=== PATIENT | female | born 1975 | race African-American/Black ===

== ENCOUNTER 2018-06-12 11:07 | Emergency (ER) | payer OTHER ==
[~2018-06-12] VITALS: Ht 167.6 cm; Wt 117.9 kg
[~2018-06-12 11:07] MED LIST: FLAG500 PO
--- NOTE | 2018-06-12 12:13 | RADIOLOGY REPORT ---
EXAMINATION: XR CHEST CLINICAL INFORMATION: Cough, dyspnea on exertion, upper back pain, chest pain. Presumptive diagnosis: Pneumonia versus CHF. COMPARISON: None TECHNIQUE: PA and lateral views of the chest are obtained. FINDINGS: The heart is normal in size. There is no congestion or focal consolidation. There is mild perihilar peribronchial thickening. The bony thorax is unremarkable. IMPRESSION: No acute cardiopulmonary process.
[2018-06-12 12:47] LABS: ABSOLUTE BASOPHIL COUNT 0 /CUMM (0.0-0.2); ABSOLUTE EOSINOPHIL COUNT 0.2 /CUMM (0.0-0.7); ABSOLUTE GRANULOCYTE CT 4.8 /CUMM (1.4-6.5); ABSOLUTE LYMPH COUNT 1.4 /CUMM (1.2-3.4); ABSOLUTE MONOCYTE COUNT 0.5 /CUMM (0.10-0.60); BASOPHIL % 0.6 % (0.0-2.0); EOSINOPHIL % 3.5 % (0-5); GRANULOCYTE % 68.9 % (42.2-75.2); MEAN CORPUSCULAR HGB 26.8 PG (27.0-31.0); MEAN CORPUSCULAR VOLUME 81.3 FL (81.0-99.0); MEAN PLATELET VOLUME 8.6 FL (7.4-10.4); PLATELET COUNT 270 /CUMM (130-400); RBC DISTRIBUTION WIDTH 15.7 % (11.5-14.5); RED BLOOD CELL CT 5.03 /CUMM (4.20-5.40)
[2018-06-12] MEDS ORDERED: PROAIR HFA8.5 GM INH (13:25)
[2018-06-12] MEDS ORDERED: PREDNISONE20 M1 PO (13:25)
--- NOTE | 2018-06-12 13:26 | ED DYSPNEA/ASTHMA COMPLAINT ---
History of Present Illness General Chief Complaint: Dyspnea (COPD, CHF, Other) Stated Complaint: SOB, CHEST PAIN Source: patient, old records Exam Limitations: no limitations Vital Signs & Intake/Output Vital Signs & Intake/Output Vital Signs Date Time Temp Pulse Resp B/P B/P Pulse O2 O2 Flow FiO2 Mean Ox Delivery Rate 06/12 1739 99 22 177/87 94 Room Air 06/12 1737 Room Air 06/12 1603 98.4 109 21 175/93 96 Room Air 06/12 1514 97 06/12 1505 107 22 179/101 96 Room Air 06/12 1331 96 06/12 1113 98.6 97 18 141/83 98 Room Air Allergies Coded Allergies: NO KNOWN ALLERGIES (06/12/18) Triage Note: 42 YO FEMALE TO TRIAGE FOR EVAL OF SOB. STATES HAS HAD A DRY COUGH SINE THE BEGINNING OF THE WEEK. REPORTS TODAY STARTED WITH SOB ON EXERTION. C/O PAIN IN UPPER BACK AND CHEST. Triage Nurses Notes Reviewed? yes Onset: Gradual Duration: day(s): (4) Severity: mild Activities at Onset: none Modifying Factors: Improves With: rest. Worsens With: movement. Associated Symptoms: anxiety, cough LMP (ages 10-50): post menopausal (tubes tied) : No Patient currently breastfeeds: No HPI: Mrs Sexton is a 42F with no past medical history that presents with a 4-day history of cough, as well as acute onset of dyspnea on exertion and chest tightness last night. States that she has had a dry cough all week with audible wheezing, and it has worsened throughout the week. States that cough medicine has helped decrease the cough, but she still feels some chest tightness. She says that this feels like an anxiety attack with superimposed cough, and she has an itchy throat. She also complains of some upper back pain secondary to cough. Currently, she rates the chest tightness as a 5 out of 10, was initially 2 out of 10. She works in the school, and has multiple sick contacts. She states that she is short of breath after climbing 1 flight of steps or walking less than one city block, whereas previously she was able to walk at least 10 city blocks or 4 flights of steps before becoming short of breath. Had gone for PFTs back in April 2017 for similar complaints, with no findings. (Estefania FISHER,[place]) Reconcile Medications Albuterol Sulfate (Proair Hfa) 90 MCG HFA.AER.AD 2 PUF INH Q4-6 PRN PRN wheezing Prednisone 20 MG TABLET 1 TAB PO DAILY wheezing (Ramakrishna Harp MD) Past History Travel History Traveled to [place] past 21 day No Medical History Any Pertinent Medical History? none Neurological: NONE EENT: NONE Cardiovascular: NONE Respiratory: NONE Gastrointestinal: NONE Hepatic: NONE Renal: NONE Musculoskeletal: NONE Psychiatric: anxiety, depression, insomnia Endocrine: NONE Blood Disorders: NONE Cancer(s): NONE MYSTERY SHOPPER/Reproductive: TUBAL LIGATION Influenza Vaccine: 07/17/12 Surgical History Surgical History: DENIES Psychosocial History What is your primary language Gabonese Tobacco Use: Never used Family History Hx Contributory? No (Chema Mac MD) Review of Systems Review of Systems Constitutional: Reports: see HPI, chills. Denies: fever, weakness. Respiratory: Reports: cough, short of breath, wheezing. Cardiovascular: Denies: chest pain, edema. GI: Reports: no symptoms. Genitourinary: Reports: no symptoms. Musculoskeletal: Reports: no symptoms. Skin: Reports: no symptoms. Neurological/Psychological: Reports: anxiety. (Chema Mac MD) Physical Exam Physical Exam General Appearance: well developed/nourished, no apparent distress, alert, awake Head: atraumatic Ears, Nose, Throat: normal pharynx, normal ENT inspection Neck: normal inspection Respiratory: diffuse inspiratory and expiratory wheezes Cardiovascular: sinus arrythmia Peripheral Pulses: 2+ radial (R), 2+ radial (L), 2+ dorsalis pedis (R), 2+ dorsalis pedis (L) Gastrointestinal: soft, non-tender Extremities: normal inspection, no edema Core Measures ACS in differential dx? No CVA/TIA Diagnosis No Sepsis Present: No Sepsis Focused Exam Completed? No (Chema Mac MD) Progress Differential Diagnosis: asthma, bronchitis, costochondritis, pneumonia Plan of Care: Orders Procedure Date/time Status TRC EVALUATION (GEN) 06/12 1247 Active TROPONIN LEVEL 06/12 1154 Complete COMPREHENSIVE METABOLIC PANEL 06/12 1154 Complete CBC WITHOUT DIFFERENTIAL 06/12 1154 Complete EKG 06/12 1107 Active Laboratory Tests 06/12/18 1240: Anion Gap 10, Estimated GFR > 60, BUN/Creatinine Ratio 17.1, Glucose 102 H, Calcium 9.2, Total Bilirubin 0.6, AST 26, ALT 40, Alkaline Phosphatase 73, Troponin I < 0.01, Total Protein 7.3, Albumin 4.3, Globulin 3.0, Albumin/ Globulin Ratio 1.4, CBC w Diff NO MAN DIFF REQ, RBC 5.03, MCV 81.3, MCH 26.8 L, MCHC 33.0, RDW 15.7 H, MPV 8.6, Gran % 68.9, Lymphocytes % 20.2 L, Monocytes % 6.8, Eosinophils % 3.5, Basophils % 0.6, Absolute Granulocytes 4.8, Absolute Lymphocytes 1.4, Absolute Monocytes 0.5, Absolute Eosinophils 0.2, Absolute Basophils 0 Diffuse inspiratory and expiratory wheezes on lung exam. Ordered nebulizer, will reassess patients lung exam post nebulizer treatment. 1430: Post nebulizer treatment, patients lungs continue to wheeze. Will give 50mg prednisone and another albuterol treatment. Repeat lung exam: lungs clearer, although still some wheezes. Explained POC to patient who is agreeable. Will f/u with PCP at home. Diagnostic Imaging: Viewed by Me: Radiology Read. Radiology Impression: no acute abnormality CXR Impression: no acute abnormality Initial ED EKG: sinus arrythmia (Chema Mac MD) Departure Departure Disposition: HOME OR SELF CARE Condition: Stable Clinical Impression Primary Impression: Bronchitis Referrals: Peter Green MD (PCP/Family) Additional Instructions: -Please take four days of steroids, 20mg a day. Please take inhaler as needed for wheezing. Please follow up with your primary care doctor within 1-2 weeks and inform them of this visit. - Please follow up with your primary care physician within 1-2 weeks of discharge. Inform your primary care physician of this admission to [facility]. - Continue your current medications per discharge instructions. - Please watch for these problems: Fever, Chills, Nausea, Vomiting, Shortness of Breath, Productive Cough, Chest Pain/Discomfort, Abdominal Pain, Active Bleeding or Bloody urine/stool. Departure Forms: Customer Survey General Discharge Information Prescriptions: Current Visit Scripts Prednisone 1 TAB PO DAILY #4 TAB Albuterol Sulfate (Proair Hfa) 2 PUF INH Q4-6 PRN PRN wheezing #1 INHAL (Chema Mac MD) Resident Co-Sign Statement Statement: ED Attending supervision documentation- [x] I saw and evaluated the patient. I have also reviewed all the pertinent lab results and diagnostic results. I agree with the findings and the plan of care as documented in the Resident's documentation. Patient with SOB. Diffuse wheezing on exam. Steroids nebs, discharged after improvement. Will continue prednisone and albuterol. Viral v. allergic [] I have reviewed the ED Record and agree with the Resident's documentation. [] Additions or exceptions (if any) to the Resident's note and plan are summarized below: [] (Katiuska FISHER, Ramakrishna) Critical Care Note Critical Care Note Critical Care Time: non-applicable (Estefania FISHER,Chema)
[2018-06-12 17:39] VITALS: BP 177/87
== END 2018-06-12 17:40 ==
LOC: ERH 11:07
PROVIDERS: Physical Medicine & Rehabilitation
DX: J40 Bronchitis, not specified as acute or chronic (principal); R05 Cough; R06.00 Dyspnea, unspecified; R07.89 Other chest pain; R06.2 Wheezing; M54.6 Pain in thoracic spine
CPT/HCPCS: 1263; 71046; 93005; 93010; J7512